=== PATIENT | female | born 1990 | race Caucasian/White ===

== ENCOUNTER 2017-08-01 08:55 | Day surgery (SDC) | payer BC ==
[~2017-08-01 08:55] MED LIST: Clindamycin Phosphate in D5W 600 MG in Premix Bag 50 BAG IV ONE; Lactated Ringers 1,000 ML IV SCH
[2017-08-01] MEDS ORDERED: Methylene Blue 50 MG/10 ML Ampule INJECT ONE (08:56)
[2017-08-01] MEDS ORDERED: Propofol 200 MG/20 ML SDV ONE ×2 (09:09→10:52)
[2017-08-01] MEDS ORDERED: Midazolam 1 MG/ML 2 ML SDV ONE (09:09)
[2017-08-01] MEDS ORDERED: Ondansetron 4 MG/2 ML SDV ONE (09:09)
[2017-08-01] MEDS ORDERED: Rocuronium 10 MG/ML 10 ML Syringe ONE (09:09)
[2017-08-01] MEDS ORDERED: Dexamethasone 4 MG/ML 5 ML MDV ONE (09:09)
[2017-08-01] MEDS ORDERED: fentaNYL 250 MCG/5 ML SDV ONE (09:10)
[2017-08-01] MEDS ORDERED: Clindamycin Phosphate in D5W 600 MG in Premix Bag 50 BAG IV ONE ×2 (09:45)
--- NOTE | 2017-08-01 10:12 | PCM.PREANE ---
Preanesthetic Assessment - Anesthesia/Transfusion/Family Hx Anesthesia History: Prior Anesthesia Without Reaction Family History of Anesthesia Reaction: No Transfusion History: No Prior Transfusion(s) Intubation History: Unknown - Review of Systems General: No Symptoms Pulmonary: No Symptoms Cardiovascular: No Symptoms Gastrointestinal: No Symptoms Neurological: No Symptoms Other: Reports: None - Physical Assessment O2 Sat by Pulse Oximetry: 98 Respiratory Rate: 16 Vital Signs: Last Vital Signs Temp Pulse 74 08/01/17 09:55 Resp 16 08/01/17 09:55 BP 116/74 08/01/17 09:55 Pulse Ox 98 08/01/17 09:55 Height: 1.78 m Weight: 121.109 kg ASA Class: 2 Mental Status: Alert & Oriented x3 Airway Class: Mallampati = 2 Dentition: Reports: Normal Dentition Thyro-Mental Finger Breadths: 3 Mouth Opening Finger Breadths: 3 ROM/Head Extension: Full Lungs: Clear to Auscultation, Normal Respiratory Effort Cardiovascular: Regular Rate, Regular Rhythm - Lab Values: Laboratory Last Values Urine HCG, Qual NEGATIVE (NEGATIVE) 08/01/17 09:15 - Allergies Allergies/Adverse Reactions: Allergies Allergy/AdvReac Type Severity Reaction Status Date / Time Penicillins Allergy Rash Verified 07/27/17 08:40 - Blood Blood Available: No - Anesthesia Plan Pre-Op Medication Ordered: None - Acknowledgements Anesthesia Type Planned: General Anesthesia Pt an Appropriate Candidate for the Planned Anesthesia: Yes Alternatives and Risks of Anesthesia Discussed w Pt/Guardian: Yes Pt/Guardian Understands and Agrees with Anesthesia Plan: Yes PreAnesthesia Questionnaire Other HEENT History: wears glasses/contacts Musculoskeletal History: Reports: Fracture Other Musculoskeletal History: right forearm Endocrine/Metabolic History: Reports: Obesity/BMI 30+ Dermatologic History: Reports: Other (See Below) Other Dermatologic History: hidradentisis - Past Surgical History GI Surgical History: Reports: Cholecystectomy Musculoskeletal Surgical History: Reports: ORIF Other Musculoskeletal Surgeries/Procedures:: ORIF right forearm (hardware removed) - SUBSTANCE USE Smoking Status *Q: Never Smoker Recreational Drug Use History: No - HOME MEDS Home Medications: Home Meds Ethinyl Estradiol/Drospirenone [Drospirenone-Ee 3-0.02 mg Tab] 1 tab PO DAILY [History] - CURRENT (IN HOUSE) MEDS Current Meds: Current Medications Lactated Ringer's (Ringers, Lactated) 1,000 mls @ 125 mls/hr IV ASDIRECTED MARION Last Admin: 08/01/17 09:32 Dose: 125 mls/hr Clindamycin Phosphate 600 mg/ (Premix) 50 mls @ 100 mls/hr IV ONETIME ONE Stop: 08/01/17 10:14 Last Admin: 08/01/17 09:49 Dose: 100 mls/hr Discontinued Medications Dexamethasone (Dexamethasone) Confirm Administered Dose 20 mg .ROUTE .STK-MED ONE Stop: 08/01/17 09:10 Fentanyl (Sublimaze) Confirm Administered Dose 250 mcg .ROUTE .STK-MED ONE Stop: 08/01/17 09:11 Clindamycin Phosphate 600 mg/ (Premix) 50 mls @ 100 mls/hr IV ONETIME ONE Stop: 08/01/17 05:29 Midazolam HCl (Versed 1 Mg/Ml) Confirm Administered Dose 2 mg .ROUTE .STK-MED ONE Stop: 08/01/17 09:10 Ondansetron HCl (Zofran) Confirm Administered Dose 4 mg .ROUTE .STK-MED ONE Stop: 08/01/17 09:10 Propofol (Diprivan 20 Ml) Confirm Administered Dose 200 mg .ROUTE .STK-MED ONE Stop: 08/01/17 09:10 Rocuronium [place] (Zemuron) Confirm Administered Dose 100 mg .ROUTE .STK-MED ONE Stop: 08/01/17 09:10
[2017-08-01] MEDS ORDERED: Lidocaine 2% 5 ML SDV ONE (10:52)
[2017-08-01] MEDS ORDERED: Glycopyrrolate 0.2 MG/ML SDV ONE (13:46)
[2017-08-01] MEDS ORDERED: Neostigmine Methylsulfate 1 MG/ML 5 ML Syringe ONE (13:46)
[2017-08-01] MEDS ORDERED: fentaNYL 100 MCG/2 ML SDV IVPUSH PRN (14:19)
--- NOTE | 2017-08-01 15:43 | PCM48HPAN ---
Post Anesthesia Note - EVALUATION WITHIN 48HRS OF ANESTHETIC Vital Signs in Normal Range: Yes Patient Participated in Evaluation: Yes Respiratory Function Stable: Yes Airway Patent: Yes Cardiovascular Function Stable: Yes Hydration Status Stable: Yes Pain Control Satisfactory: Yes Nausea and Vomiting Control Satisfactory: Yes Mental Status Recovered: Yes Resp Rate: 15 - COMMENTS/OBSERVATIONS Free Text/Narrative:: no anesthesia problems
--- NOTE | 2017-08-01 20:30 | OR ---
SURGEON: Damien Washington MD DATE OF PROCEDURE: 08/01/2017 PREOPERATIVE DIAGNOSIS: Cutaneous infection. POSTOPERATIVE DIAGNOSIS: Healed fistula. PROCEDURES PERFORMED: 1. Exam under anesthesia. 2. Wound exploration. COMPLICATIONS: None. FINDINGS: There is a cutaneous wound about 5mm at 7 o'clock 3 cm from anal opening; when prone position and a fibrous band can be palpated, towards anal opening; it looked like a fistula, but it has a blind end and the wound was explored and packed. PROCEDURE IN DETAIL: The patient was taken to the operating room and placed in supine position. Upon induction of general endotracheal anesthesia, the patient was re-positioned into a jackknife position. Perineum was prepped and draped in a sterile fashion. There is a cutaneous opening at about 3 cm from the anal opening, and squeeze on it no expressed material and the wound was explored and found out that it is a fibrous tract and led an opening possible at about 6 o'clock when in prone position, but the opening has been closed. You can see the tenting when explored with a probe, but there is no opening. In that situation, we do not plan to do any fistulotomy and the wound was then packed and with very little infection observed, packed with 1/4 inch gauze followed by appropriate dressing. The patient was re-positioned in the supine position, awakened, extubated, and transferred to recovery in hemodynamically stable condition. The patient tolerated the procedure well and there were no intraoperative complications. Dr. Washington was present for the whole procedure. The packing should be removed in about 3 days and heal by secondary intention. MARSHALL / TEN /[id number] DENISE
== END 2017-08-01 16:35 | disposition home or self-care (01) ==
LOC: MW.SDS 08:55
PROVIDERS: ATTEND Surgery
DX: L98.8 Other specified disorders of the skin and subcutaneous tissue (principal); E66.9 Obesity, unspecified; Z88.0 Allergy status to penicillin; Z68.30 Body mass index [BMI] 30.0-30.9, adult; Z90.49 Acquired absence of other specified parts of digestive tract; Z79.899 Other long term (current) drug therapy
CPT/HCPCS: 10060; 81025; 87070; 87075; 87205; J1100; J2250; J2405; J3010; J7120; 00902; J2704

== ENCOUNTER 2024-10-24 07:11 | Emergency (ER) | payer BC ==
[2024-10-24] MEDS: Bupivacaine 0.25% 10 ML SDV INJECT ONE (09:11)
[2024-10-24] MEDS: Lidocaine 1% with EPINEPHrine 1:100,000 10 ML MDV INJECT ONE (09:11)
== END 2024-10-24 10:54 | disposition home or self-care (01) ==
LOC: MW.ED 07:11
DX: N76.4 Abscess of vulva (principal); E66.9 Obesity, unspecified; Z68.41 Body mass index [BMI] 40.0-44.9, adult; Z90.49 Acquired absence of other specified parts of digestive tract; Z88.0 Allergy status to penicillin; Z79.899 Other long term (current) drug therapy
CPT/HCPCS: 99282; J0665